=== PATIENT | female | born 1965 ===

== ENCOUNTER 2020-11-11 15:59 | Outpatient (CLI) | payer OTHER ==
[~2020-11-11 15:59] MED LIST: ACETAMINOOPHEN-1 TAB PO; NAPR500T14 PO
[2021-01-03] MEDS ORDERED: NORFLEX100MG PO (11:32)
[2021-01-03] MEDS ORDERED: NABUMETONE750 MG PO (11:32)
== END 2020-11-11 16:05 | disposition home or self-care (01) ==
LOC: LAB 15:59
PROVIDERS: ATTEND Physical Medicine & Rehabilitation
DX: R05 Cough (principal); R06.02 Shortness of breath; Z03.818 Encounter for observation for suspected exposure to other biological agents ruled out